=== PATIENT | male | born 1980 | race Hispanic/Latino ===

== ENCOUNTER 2017-12-07 09:41 | Emergency (ER) | payer BC, OTHER ==
[2017-12-07] MEDS ORDERED: NA CHLORIDE 0.9% 1,000 ML ONE (10:26)
[2017-12-07] MEDS ORDERED: ASPIRIN 81 MG CHEWABLE TABLET ONE (10:26)
--- NOTE | 2017-12-07 10:45 | EKG ---
Test Date: 2017-12-07 Test Time: 09:51:37 [employer]ire Changer: RUBIO MEASUREMENT RESULTS: Intervals: Rate: 46 ID: [id number] QRSD: 102 QT: 420 QTc: 367 Joffre: P: 27 ID: [id number] QRS: 100 T: 68 INTERPRETIVE STATEMENTS: Sinus bradycardia Rightward axis Borderline ECG No previous ECG available for comparison Electronically Signed On 12-07-17 10:44:25 CDT by Pako Felipe
[2017-12-07 10:46] LABS: Absolute Lymphocytes (CBC) 1.8 K/uL (0.7-4.9); Absolute Monocytes 0.5 K/uL (0.1-1.3); Absolute Neutrophil 3.1 K/uL (1.8-8.0); Basophils % 0.6 % (0-1.3); Eosinophils % 0.7 % (0-4.4); Hematocrit 45.8 % (39.6-49.0); Lymphocytes % 32.2 % (15.3-44.8); MCH 31.1 pg (27.0-35.0); MCV 91.4 fL (80-100); MPV 8.8 fL (7.6-11.3); Monocytes % 9.4 % (3.3-12.3); RBC Red Blood Cell Count 5.01 M/uL (4.33-5.43)
[2017-12-07 10:47] LABS: Protime INR 1.07
--- NOTE | 2017-12-07 10:49 | RAD REPORT ---
EXAM DESCRIPTION: RAD - Chest Single View - 12/07/2017 10:30 am CLINICAL HISTORY: Chest pain, shortness of breath COMPARISON: None. TECHNIQUE: AP portable chest image was obtained 1024 hours . FINDINGS: Lungs are clear. Heart and vasculature are normal. No measurable pleural effusion and no p neumothorax. No gross bony abnormality seen. No acute aortic findings suspected. IMPRESSION: No acute cardiopulmonary process.
[2017-12-07 10:51] LABS: ALT/SGPT 53 U/L (12-78); AST/SGOT 42 U/L (15-37); Albumin 4.1 g/dL (3.4-5.0); Alkaline Phosphatase 102 U/L (45-117); BUN Blood Urea Nitrogen 9 mg/dL (7-18); Bicarbonate 27 mmol/L (21-32); Bilirubin Direct < 0.1 mg/dL (0-0.2); Bilirubin Total 0.5 mg/dL (0.2-1.0); Glucose Level 94 mg/dL (74-106); Lipase 116 U/L (73-393); Magnesium 1.9 mg/dL (1.8-2.4); NT PRO-BNP 22 pg/mL (<125); Protein, Total 7.8 g/dL (6.4-8.2); Sodium Level 140 mmol/L (136-145); Troponin (Emerg Dept Use Only) < 0.02 ng/mL (0.0-0.045)
--- NOTE | 2017-12-07 11:30 | RAD REPORT ---
EXAM DESCRIPTION: CT - Chest For Pe Angio - 12/07/2017 11:04 am CLINICAL HISTORY: Chest pain radiating to the right chest, chest fullness COMPARISON: Chest films same date TECHNIQUE: Dynamically enhanced 3 mm thick images of the chest were obtained during administration o f approximately 150mL Isovue 370 IV contrast. Coronal and oblique MIP reconstruction images were gene rated and reviewed. Exam utilizes a protocol to evaluate the pulmonary arterial tree. All CT scans are performed using dose optimization technique as appropriate and may include automated exposure control or mA/KV adjustment according to patient size. FINDINGS: No pulmonary emboli are identified. The aorta as imaged shows no acute or suspicious finding. No pericardial thickening or effusion. No infiltrate or mass in the lung parenchyma. No pleural effusion or pleural thickening. No mediastinal or hilar suspicious masses. No chest wall masses or abnormal axillary lymphadenopathy. IMPRESSION: No pulmonary emboli identified. No other significant or suspicious findings.
--- NOTE | 2017-12-07 12:15 | ECHO ---
HEIGHT: 5 ft 8 in WEIGHT: 160 lb oz DATE OF STUDY: 12/07/[address]: Damian Hunter MD 2-DIMENSIONAL: YES M.MODE: YES DOPPLER: YES COLOR FLOW: YES TDS: NO PORTABLE: YES DEFINITY: NO BUBBLE STUDY: NO DIAGNOSIS: CHEST PAIN CARDIAC HISTORY: CATHERIZATION: NO SURGERY: NO PROSTHETIC VALVE: NO PACEMAKER: NO MEASUREMENTS (cm) DIASTOLIC (NORMALS) SYSTOLIC (NORMALS) IVSd 0.9 (0.6-1.2) LA Diam 3.0 (1.9-4.0) LVEF 61% LVIDd 4.2 (3.5-5.7) LVIDs 2.8 (2.0-3.5) %FS 32% LVPWd 1.1 (0.6-1.2) Ao Diam 2.8 (2.0-3.7) 2 DIMENSIONAL ASSESSMENT: RIGHT ATRIUM: NORMAL LEFT ATRIUM: NORMAL RIGHT VENTRICLE: NORMAL LEFT VENTRICLE: NORMAL TRICUSPID VALVE: NORMAL MITRAL VALVE: NORMAL PULMONIC VALVE: NORMAL AORTIC VALVE: NORMAL PERICARDIAL EFFUSION: NONE AORTIC ROOT: NORMAL LEFT VENTRICULAR WALL MOTION: NORMAL. DOPPLER/COLOR FLOW: MILD TRICUSPID REGURGITATION. NORMAL RIGHT VENTRICULAR SYSTOLIC PRESSURE. COMMENTS: NORMAL 2D ECHO. MILD TRICUSPID REGURGITATION. TECHNOLOGIST: ANNA KENT
--- NOTE | 2017-12-07 12:49 | ER ---
Nurse's Notes [facility] Name: Mynor Reza Age: 37 yrs Sex: Male : 1980 Arrival Date: 12/07/2017 Time: 09:46 Bed 7 Private MD: Paul Serrano S Diagnosis: Other chest pain;Essential (primary) hypertension;Pleurisy Presentation: 12/07 09:48 Presenting complaint: Patient states: i have this chest pain for about a week, hj underneath my R chest; feels heavy and hurts, /10; i have lifted weights last week; denies SOB; reports radiating pain on R arm and R upper back area;. Transition of care: patient was not received from another setting of care. Onset of symptoms was December 07, 2017. Risk Assessment: Do you want to hurt yourself or someone else? Patient reports no desire to harm self or others. Initial Sepsis Screen: Does the patient meet any 2 criteria? No. Patient's initial sepsis screen is negative. Does the patient have a suspected source of infection? No. Patient's initial sepsis screen is negative. Care prior to arrival: None. 09:48 Method Of Arrival: Ambulatory 09:48 Acuity: TUSHAR 3 hj Triage Assessment: 09:51 General: Appears in no apparent distress. uncomfortable, Behavior is calm, cooperative, hj appropriate for age. Pain: Complains of pain in chest Pain does not radiate. Pain currently is 9 out of 10 on a pain scale. Cardiovascular: Capillary refill < 3 seconds Patient's skin is warm and dry. Historical: - Allergies: 09:51 No Known Allergies; hj - Home Meds: 09:51 amlodipine-benazepril 2.5-10 mg oral cap 1 cap once daily [Active]; hj - PMHx: 09:51 Hypertension; hj 09:56 SVT; - PSHx: 09:51 heart ablation; hj - Immunization history:: Adult Immunizations up to date. - Social history:: Smoking status: Patient/guardian denies using tobacco, Patient uses alcohol, occasionally. - Ebola Screening: : Patient negative for fever greater than or equal to 101.5 degrees Fahrenheit, and additional compatible Ebola Virus Disease symptoms Patient denies exposure to infectious person Patient denies travel to an Ebola-affected area in the 21 days before illness onset. - Family history:: not pertinent. Screenin:51 Abuse screen: Denies threats or abuse. Denies injuries from another. Nutritional hj screening: No deficits noted. Tuberculosis screening: No symptoms or risk factors identified. Fall Risk None identified. Assessment: 09:52 Pain: Pain began a week. hj 10:25 General: Appears in no apparent distress. comfortable, Behavior is calm, cooperative, aj appropriate for age. Pain: Complains of pain in anterior aspect of right upper chest and right breast. Neuro: Level of Consciousness is awake, alert, obeys commands, Oriented to person, place, time, situation, Appropriate for age. Respiratory: Airway is patent Respiratory effort is even, unlabored, Respiratory pattern is regular, symmetrical. Derm: Skin is intact, is healthy with good turgor, Skin is pink, warm \T\ dry. normal. 12:55 Reassessment: Patient appears in no apparent distress at this time. No changes from aj previously documented assessment. Patient and/or family updated on plan of care and expected duration. Pain level reassessed. Patient is alert, oriented x 3, equal unlabored respirations, skin warm/dry/pink. Patient denies pain at this time. Patient states feeling better. Patient states symptoms have improved. Vital Signs: 09:52 BP 137 / 67; Pulse 57; Resp 18; Temp 97.3(O); Pulse Ox 100% on R/A; Weight 72.57 kg; hj Height 5 ft. 8 in. (172.72 cm); Pain 9/10; 11:15 BP 133 / 75; Pulse 47; Resp 19; Pulse Ox 99% on R/A; aj 12:47 BP 125 / 76; Pulse 46; Resp 17; Pulse Ox 99% on R/A; aj 09:52 Body Mass Index 24.33 (72.57 kg, 172.72 cm) ED Course: 09:46 Patient arrived in ED. mr 09:47 Paul Serrano MD is Private Physician. mr 09:50 Triage completed. hj 09:52 Arm band placed on left wrist. hj 09:52 Patient has correct armband on for positive identification. Placed in gown. Bed in low hj position. Call light in reach. Side rails up X 1. monitoring coordinator on. Pulse ox on. NIBP on. 09:52 Patient maintains SpO2 saturation greater than 95% on room air. hj 09:55 Skye Mendosa, RN is Primary Nurse. aj 09:55 EKG done, by photo technologist. reviewed by Damian Hunter MD. at1 10:00 Damian Hunter MD is Attending Physician. luis 10:14 Radiology exam delayed due to lab results not completed at this time. (BUN/Creatinine). jg6 10:15 Inserted saline lock: 20 gauge in right antecubital area, using aseptic technique. aj Blood collected. 10:30 XRAY Chest (1 view) In Process Unspecified. EDMS 10:30 X-ray completed. Portable x-ray completed in exam room. Patient tolerated procedure ls3 well. 10:42 Radiology exam delayed due to lab results not completed at this time. (BUN/Creatinine). vr 10:58 CT completed. Patient tolerated procedure well. Patient moved to CT via wheelchair. jg6 11:04 CT Chest For PE Angio In Process Unspecified. EDMS 12:48 Paul Serrano MD is Referral Physician. luis 12:48 Chavez Hutton MD is Referral Physician. luis 12:55 No provider procedures requiring assistance completed. IV discontinued, intact, aj bleeding controlled, No redness/swelling at site. Pressure dressing applied. Administered Medications: 10:25 Drug: NS 0.9% 1000 ml Route: IV; Rate: 125 ml/hr; Site: right antecubital; aj 12:59 Follow up: Response: No adverse reaction; IV Status: Completed infusion; IV Intake: aj 1000ml 10:25 Drug: Aspirin Chewable Tablet 324 mg Route: PO; aj 12:58 Follow up: Response: No adverse reaction aj Intake: 12:59 IV: 1000ml; Total: 1000ml. aj Outcome: 12:48 Discharge ordered by . luis 12:55 Discharged to home ambulatory. aj 12:55 Condition: good 12:55 Discharge instructions given to patient, Instructed on discharge instructions, follow up and referral plans. medication usage, Demonstrated understanding of instructions, follow-up care, medications, Prescriptions given X 1. 12:59 Patient left the ED. aj Signatures: Dispatcher [employer] EDMS Skye Mendosa, Damian Perez RN, MD MD cha Rivera, Estela mr Lisa, Dasha vr Skye Villanueva, compensation and benefits advisor EKG Tat1 Marcial Bravo RN RN hj Garcia, Jessica jg6 Shahana Medina ls3 Corrections: (The following items were deleted from the chart) 10:13 09:48 Presenting complaint: Patient states: i have this chest pain for about a week, hj underneath my R chest; feels heavy and hurts, 11/14; i have lifted weights last week; denies SOB; hj
--- NOTE | 2017-12-07 12:49 | EDPHYS ---
Physician Documentation [facility] Name: Mynor Reza Age: 37 yrs Sex: Male : 1980 Arrival Date: 12/07/2017 Time: 09:46 Bed 7 Private MD: Paul Serrano S ED Physician Damian Hunter HPI: 12/07 10:08 This 37 yrs old Male presents to ER via Ambulatory with complaints of Chest luis Pain. 10:08 The patient or guardian reports chest pain that is located primarily in the substernal luis area. The pain does not radiate. Associated signs and symptoms: Pertinent positives: cough, dizziness, lightheadedness, recent travel. The chest pain is described as a pressure, sharp. Duration: The patient or guardian reports multiple episodes, with no pattern. Modifying factors: The symptoms are alleviated by remaining still, the symptoms are aggravated by deep breath, exertion, movement, palpation of area. Severity of pain: At its worst the pain was mild moderate in the emergency department the pain is unchanged. The patient has not experienced similar symptoms in the past. Historical: - Allergies: 09:51 No Known Allergies; hj - Home Meds: 09:51 amlodipine-benazepril 2.5-10 mg oral cap 1 cap once daily [Active]; hj - PMHx: 09:51 Hypertension; 09:56 SVT; - PSHx: 09:51 heart ablation; hj - Immunization history:: Adult Immunizations up to date. - Social history:: Smoking status: Patient/guardian denies using tobacco, Patient uses alcohol, occasionally. - Ebola Screening: : Patient negative for fever greater than or equal to 101.5 degrees Fahrenheit, and additional compatible Ebola Virus Disease symptoms Patient denies exposure to infectious person Patient denies travel to an Ebola-affected area in the 21 days before illness onset. - Family history:: not pertinent. ROS: 10:08 Constitutional: Negative for fever, chills, and weight loss, Eyes: Negative for injury, luis pain, redness, and discharge, ENT: Negative for injury, pain, and discharge, Neck: Negative for injury, pain, and swelling, Abdomen/GI: Negative for abdominal pain, nausea, vomiting, diarrhea, and constipation, Back: Negative for injury and pain, : Negative for injury, bleeding, discharge, and swelling, MS/Extremity: Negative for injury and deformity, Skin: Negative for injury, rash, and discoloration, Neuro: Negative for headache, weakness, numbness, tingling, and seizure, Psych: Negative for depression, anxiety, suicide ideation, homicidal ideation, and hallucinations, Allergy/Immunology: Negative for hives, rash, and allergies, Endocrine: Negative for neck swelling, polydipsia, polyuria, polyphagia, and marked weight changes, Hematologic/Lymphatic: Negative for swollen nodes, abnormal bleeding, and unusual bruising. 10:08 Cardiovascular: Positive for chest pain. 10:08 Respiratory: Positive for pleurisy, shortness of breath, at rest. Exam: 10:08 Constitutional: This is a well developed, well nourished patient who is awake, alert, luis and in no acute distress. Head/Face: Normocephalic, atraumatic. Eyes: Pupils equal round and reactive to light, extra-ocular motions intact. Lids and lashes normal. Conjunctiva and sclera are non-icteric and not injected. Cornea within normal limits. Periorbital areas with no swelling, redness, or edema. ENT: Nares patent. No nasal discharge, no septal abnormalities noted. Tympanic membranes are normal and external auditory canals are clear. Oropharynx with no redness, swelling, or masses, exudates, or evidence of obstruction, uvula midline. Mucous membranes moist. Neck: Trachea midline, no thyromegaly or masses palpated, and no cervical lymphadenopathy. Supple, full range of motion without nuchal rigidity, or vertebral point tenderness. No Meningismus. Chest/axilla: Normal chest wall appearance and motion. Nontender with no deformity. No lesions are appreciated. Cardiovascular: Regular rate and rhythm with a normal S1 and S2. No gallops, murmurs, or rubs. Normal PMI, no JVD. No pulse deficits. Abdomen/GI: Soft, non-tender, with normal bowel sounds. No distension or tympany. No guarding or rebound. No evidence of tenderness throughout. Back: No spinal tenderness. No costovertebral tenderness. Full range of motion. Male : Normal genitalia with no discharge or lesions. Skin: Warm, dry with normal turgor. Normal color with no rashes, no lesions, and no evidence of cellulitis. MS/ Extremity: Pulses equal, no cyanosis. Neurovascular intact. Full, normal range of motion. Neuro: Awake and alert, GCS 15, oriented to person, place, time, and situation. Cranial nerves II-XII grossly intact. Motor strength 5/5 in all extremities. Sensory grossly intact. Cerebellar exam normal. Normal gait. Psych: Awake, alert, with orientation to person, place and time. Behavior, mood, and affect are within normal limits. 10:08 Chest/axilla: Inspection: normal, Palpation: tenderness, that is mild, of the right lateral anterior chest and right breast, Axilla: are normal, Lymph nodes: lymphadenopathy is not appreciated. 10:08 Respiratory: the patient does not display signs of respiratory distress, Respirations: normal, Breath sounds: are clear throughout. 10:08 Musculoskeletal/extremity: DVT Exam: No signs of deep vein thrombosis. no pain, no swelling, no tenderness, negative Homans' sign noted on exam, no appreciated bluish discoloration, no erythema, no increased warmth. Vital Signs: 09:52 BP 137 / 67; Pulse 57; Resp 18; Temp 97.3(O); Pulse Ox 100% on R/A; Weight 72.57 kg; hj Height 5 ft. 8 in. (172.72 cm); Pain 9/10; 11:15 BP 133 / 75; Pulse 47; Resp 19; Pulse Ox 99% on R/A; aj 12:47 BP 125 / 76; Pulse 46; Resp 17; Pulse Ox 99% on R/A; aj 09:52 Body Mass Index 24.33 (72.57 kg, 172.72 cm) MDM: 10:00 Patient medically screened. [facility] 10:11 Data reviewed: vital signs, nurses notes, lab test result(s), EKG, radiologic studies, [facility] CT scan, plain films. 12/07 10: Order name: Basic Metabolic Panel [facility] 12/07 10: Order name: CBC with Diff [facility] 12/07 10: Order name: LFT's [facility] 12/07 10: Order name: Magnesium [facility] 12/07 10: Order name: NT PRO-BNP [facility] 12/07 10:01 Order name: PT-INR; Complete Time: 11:11 [facility] 12/07 10: Order name: Troponin (emerg Dept Use Only); Complete Time: 11:11 [facility] 10/03 10:01 Order name: Lipase; Complete Time: 11:11 [facility] 12/07 10:01 Order name: Basic Metabolic Panel; Complete Time: 11:11 [facility] 12/07 10:01 Order name: CBC with Automated Diff; Complete Time: 11:11 [facility] 12/07 10:01 Order name: Liver (Hepatic) Function; Complete Time: 11:11 [facility] 12/07 10:01 Order name: Magnesium; Complete Time: 11:11 [facility] 12/07 10:01 Order name: NT PRO-BNP; Complete Time: 11:11 [facility] 12/07 11:24 Order name: Troponin (emerg Dept Use Only): please repeat at noon; Complete Time: 12:48 [facility] 12/07 10:01 Order name: XRAY Chest (1 view); Complete Time: 11:11 [facility] 12/07 10:01 Order name: EKG; Complete Time: 10:02 [facility] 12/07 10:01 Order name: Cardiac monitoring; Complete Time: 10: [facility] 12/07 10:01 Order name: EKG - Nurse/Tech; Complete Time: 10: [facility] 12/07 10:01 Order name: O2 Per Protocol; Complete Time: 10: [facility] 12/07 10:01 Order name: O2 Sat Monitoring; Complete Time: 10: [facility] 12/07 10:08 Order name: Echo w/ Doppler [facility] 12/07 10:08 Order name: CT Chest For PE Angio; Complete Time: 12:15 [facility] 12/07 12:39 Order name: Urine Dipstick--Ancillary (enter results) 12/07 12:39 Order name: Urine Dipstick-Ancillary [facility] Administered Medications: 10:25 Drug: NS 0.9% 1000 ml Route: IV; Rate: 125 ml/hr; Site: right antecubital; aj 12:59 Follow up: Response: No adverse reaction; IV Status: Completed infusion; IV Intake: aj 1000ml 10:25 Drug: Aspirin Chewable Tablet 324 mg Route: PO; aj 12:58 Follow up: Response: No adverse reaction aj Disposition: 12/07/17 12:48 Discharged to Home. Impression: Other chest pain, Essential (primary) hypertension, Pleurisy. - Condition is Stable. - Discharge Instructions: Nonspecific Chest Pain, Chest Wall Pain, Hypertension, Pleurisy, Chest Wall Pain, [id number]-[id number], Nonspecific Chest Pain, Wojw-xo-Teiw, Hypertension, Tkzb-gh-[id number], How to Take Your Blood Pressure, Bcod-ds-Fnsa, Aspirin and Your Heart, Pleurisy, Axxd-nc-Fvig, Managing Your Hypertension. - Prescriptions for Protonix 40 mg Oral Tablet, Delayed Release (E.C.) - take 1 tablet by ORAL route once daily; 20 tablet. - Medication Reconciliation Form, Thank You Letter, Antibiotic Education, Prescription Opioid Use form. - Follow up: Paul Serrano; When: 2 - 3 days; Reason: Recheck today's complaints, Continuance of care, Re-evaluation by your physician. Follow up: Chavez Hutton; When: 2 - 3 days; Reason: Recheck today's complaints, Re-evaluation by your physician. - Problem is new. - Symptoms have improved. Signatures: Dispatcher [employer] EDSkye Leary RN RN aj Anderson, Corey, MD MD cha Joaquin, Henry, RN RN hj Corrections: (The following items were deleted from the chart) 12:59 12:48 12/07/2017 12:48 Discharged to Home. Impression: Other chest pain; Essential aj (primary) hypertension; Pleurisy. Condition is Stable. Discharge Instructions: Nonspecific Chest Pain, Chest Wall Pain, Hypertension, Pleurisy, Chest Wall Pain, Qwjq-[id number]-[id number], Nonspecific Chest Pain, Flec-qh-Xsne, Hypertension, Kibk-af-Khox, How to Take Your Blood Pressure, Upws-vj-Gdqf, Aspirin and Your Heart, Pleurisy, Easy-dn-Uxqf, Managing Your Hypertension. Prescriptions for Protonix 40 mg Oral Tablet, Delayed Release (E.C.) - take 1 tablet by ORAL route once daily; 20 tablet. and Forms are Medication Reconciliation Form, Thank You Letter, Antibiotic Education, Prescription Opioid Use. Follow up: Paul Serrano; When: 2 - 3 days; Reason: Recheck today's complaints, Continuance of care, Re-evaluation by your physician. Follow up: Chavez Hutton; When: 2 - 3 days; Reason: Recheck today's complaints, Re-evaluation by your physician. Problem is new. Symptoms have improved. luis
[2017-12-07 14:03] LABS: Urine Blood NEGATIVE (NEG); Urine Glucose NEGATIVE (NEG); Urine Protein NEGATIVE (NEG); Urine pH 8.5 (5.0-7.0)
== END 2017-12-07 12:59 | disposition home or self-care (01) ==
LOC: ER 09:41
DX: I10 Essential (primary) hypertension (principal); R09.1 Pleurisy
CPT/HCPCS: 36415; 71045; 71275; 80048; 80076; 81003; 83690; 83735; 83880; 84484; 85025; 85610; 93005; 93306; J7030; Q9967

== ENCOUNTER 2018-01-26 10:30 | Emergency (ER) | payer OTHER ==
--- NOTE | 2018-01-26 12:10 | EDPHYS ---
Physician Documentation [facility] Name: Mynor Reza Age: 37 yrs Sex: Male : 1980 Arrival Date: 01/26/2018 Time: 10:34 Bed 18 Private MD: Paul Serrano S ED Physician Latonia Overton HPI: 01/26 12:07 This 37 yrs old Male presents to ER via Ambulatory with complaints of Flu ma2 Symptoms. 12:07 The patient or guardian reports cough, flu symptoms. Severity of symptoms: At their ma2 worst the symptoms were moderate, in the emergency department the symptoms are unchanged. Associated signs and symptoms: Pertinent negatives: chest pain. The patient has not experienced similar symptoms in the past. Historical: - Allergies: 10:47 No Known Allergies; aj1 - Home Meds: 10:47 amlodipine-benazepril 2.5-10 mg Oral cap 1 cap once daily [Active]; aj1 - PMHx: 10:47 Hypertension; SVT; aj1 - PSHx: 10:47 wrist surgery; aj1 10:47 Cholecystectomy; aj1 - Immunization history:: Flu vaccine is up to date. - Social history:: Smoking status: Patient/guardian denies using tobacco, Patient/guardian denies using alcohol, street drugs, The patient lives with family. - Ebola Screening: : Patient denies travel to an Ebola-affected area in the 21 days before illness onset. - Family history:: not pertinent. - Hospitalizations: : No recent hospitalization is reported. ROS: 12:07 Constitutional: Negative for fever, chills, and weight loss, Cardiovascular: Negative ma2 for chest pain, palpitations, and edema, Respiratory: Negative for shortness of breath, cough, wheezing, and pleuritic chest pain, Abdomen/GI: Negative for abdominal pain, nausea, diarrhea, and constipation, MS/Extremity: Negative for injury and deformity. 12:07 ENT: Positive for sore throat, Negative for drainage from ear(s), Gum pain hearing loss. 12:07 All other systems are negative. Exam: 12:07 Constitutional: This is a well developed, well nourished patient who is awake, alert, ma2 and in no acute distress. Head/Face: Normocephalic, atraumatic. Chest/axilla: Normal chest wall appearance and motion. Nontender with no deformity. No lesions are appreciated. Cardiovascular: Regular rate and rhythm with a normal S1 and S2. No gallops, murmurs, or rubs. Normal PMI, no JVD. No pulse deficits. Respiratory: Lungs have equal breath sounds bilaterally, clear to auscultation and percussion. No rales, rhonchi or wheezes noted. No increased work of breathing, no retractions or nasal flaring. 12:07 MS/ Extremity: Pulses equal, no cyanosis. Neurovascular intact. Full, normal range of motion. Neuro: Awake and alert, GCS 15, oriented to person, place, time, and situation. Cranial nerves II-XII grossly intact. Motor strength 5/5 in all extremities. Sensory grossly intact. Cerebellar exam normal. Normal gait. 12:07 ENT: Posterior pharynx: Airway: normal, Tonsils: bilaterally enlarged. Vital Signs: 10:47 BP 151 / 87; Pulse 92; Resp 20; Temp 99.2(TE); Pulse Ox 98% on R/A; Weight 72.57 kg aj1 (R); Height 5 ft. 8 in. (172.72 cm) (R); Pain 7/10; 12:17 BP 148 / 83; Pulse 103; Resp 18; Temp 101.8(O); Pulse Ox 99% on R/A; em 10:47 Body Mass Index 24.33 (72.57 kg, 172.72 cm) aj1 MDM: 10:49 Patient medically screened. ma2 12:07 Differential Diagnosis: Bronchitis Influenza Upper Respiratory Infection Sinusitis. ma2 Data reviewed: vital signs, nurses notes. Counseling: I had a detailed discussion with the patient and/or guardian regarding: the historical points, exam findings, and any diagnostic results supporting the discharge/admit diagnosis, the presence of at least one elevated blood pressure reading (>120/80) during this emergency department visit. ED course: takes antibiotics at home.. decline pain medicine in er or steroid . 01/26 10:52 Order name: Flu; Complete Time: 12:05 ma2 Administered Medications: No medications were administered Disposition: 01/26/18 12:09 Discharged to Home. Impression: Acute bronchitis due to streptococcus. - Condition is Stable. - Discharge Instructions: Strep Throat. - Prescriptions for Tylenol- Codeine #3 300-30 mg Oral Tablet - take 2 tablet by ORAL route every 6 hours As needed; 30 tablet. - Medication Reconciliation Form, Thank You Letter, Antibiotic Education, Prescription Opioid Use form. - Follow up: Private Physician; When: Tomorrow; Reason: Continuance of care. Signatures: Dispatcher [employer] Samra Cadena RN RN aj1 Pepe Sidhu, EMAIL DEPLOYMENT SPECIALIST EMAIL DEPLOYMENT SPECIALIST em Latonia Overton MD MD ma2 Corrections: (The following items were deleted from the chart) 12:30 12:09 01/26/2018 12:09 Discharged to Home. Impression: Acute bronchitis due to em streptococcus. Condition is Stable. Forms are Medication Reconciliation Form, Thank You Letter, Antibiotic Education, Prescription Opioid Use. Follow up: Private Physician; When: Tomorrow; Reason: Continuance of care. ma2
--- NOTE | 2018-01-26 12:10 | ER ---
Nurse's Notes [facility] Name: Mynor Reza Age: 37 yrs Sex: Male : 1980 Arrival Date: 01/26/2018 Time: 10:34 Bed 18 Private MD: Paul Serrano S Diagnosis: Acute bronchitis due to streptococcus Presentation: 01/26 10:45 Presenting complaint: Patient states: He had strep throat and took Amoxicillin, the aj1 next day his came home sick and was diagnosed with strep and flu. Last night he started having body aches, fever. Transition of care: patient was not received from another setting of care. Onset of symptoms was January 25, 2018. Risk Assessment: Do you want to hurt yourself or someone else? Patient reports no desire to harm self or others. Initial Sepsis Screen: Does the patient meet any 2 criteria? No. Patient's initial sepsis screen is negative. Does the patient have a suspected source of infection? No. Patient's initial sepsis screen is negative. Care prior to arrival: None. 10:45 Method Of Arrival: Ambulatory aj1 10:45 Acuity: TUSHAR 4 aj1 Triage Assessment: 10:47 General: Appears in no apparent distress. comfortable, Behavior is calm, cooperative, aj1 appropriate for age. Pain: Complains of pain in chest Pain currently is 7 out of 10 on a pain scale. at worst was 10 out of 10 on a pain scale. Aggravated by cough. Neuro: Level of Consciousness is awake, alert, obeys commands. Cardiovascular: Patient's skin is warm and dry. Respiratory: Airway is patent Respiratory effort is even, unlabored, Respiratory pattern is regular, symmetrical. Historical: - Allergies: 10:47 No Known Allergies; aj1 - Home Meds: 10:47 amlodipine-benazepril 2.5-10 mg Oral cap 1 cap once daily [Active]; aj1 - PMHx: 10:47 Hypertension; SVT; aj1 - PSHx: 10:47 wrist surgery; aj1 10:47 Cholecystectomy; aj1 - Immunization history:: Flu vaccine is up to date. - Social history:: Smoking status: Patient/guardian denies using tobacco, Patient/guardian denies using alcohol, street drugs, The patient lives with family. - Ebola Screening: : Patient denies travel to an Ebola-affected area in the 21 days before illness onset. - Family history:: not pertinent. - Hospitalizations: : No recent hospitalization is reported. Screenin:25 Abuse screen: Denies threats or abuse. Nutritional screening: No deficits noted. em Tuberculosis screening: No symptoms or risk factors identified. Fall Risk None identified. Assessment: 11:10 General: Appears in no apparent distress. distressed, Behavior is calm, cooperative, em Reports low grade fever. Pain: Complains of pain in chest Pain currently is 7 out of 10 on a pain scale. Neuro: Level of Consciousness is awake, alert, obeys commands, Oriented to person, place, time, situation. Cardiovascular: Capillary refill < 3 seconds Patient's skin is warm and dry. Respiratory: Reports cough that is productive, pain with cough Airway is patent Respiratory effort is even, unlabored, Respiratory pattern is regular, symmetrical, Breath sounds are clear bilaterally. GI: Abdomen is flat, Patient currently denies nausea, vomiting. : No signs and/or symptoms were reported regarding the genitourinary system. EENT: Nares are clear Oral mucosa is moist. Denies nasal discharge. Derm: Skin is intact, Skin is pink, warm \T\ dry. Musculoskeletal: Capillary refill < 3 seconds, Range of motion: intact in all extremities. 11:10 Reassessment: I agree with assessment completed by PINKY Montemayor aa5 12:17 Reassessment: Patient appears in no apparent distress at this time. Patient and/or em family updated on plan of care and expected duration. Pain level reassessed. Patient is alert, oriented x 3, equal unlabored respirations, skin warm/dry/pink. reports feeling feverish, rechecked temp. 101.8, provider notified. Vital Signs: 10:47 BP 151 / 87; Pulse 92; Resp 20; Temp 99.2(TE); Pulse Ox 98% on R/A; Weight 72.57 kg [facility] (R); Height 5 ft. 8 in. (172.72 cm) (R); Pain 7/10; 12:17 BP 148 / 83; Pulse 103; Resp 18; Temp 101.8(O); Pulse Ox 99% on R/A; em 10:47 Body Mass Index 24.33 (72.57 kg, 172.72 cm) [facility] ED Course: 10:34 Patient arrived in ED. mr 10:35 Paul Serrano MD is Private Physician. mr 10:46 Triage completed. aj1 10:47 Arm band placed on Patient placed in an exam room. aj1 10:49 Latonia Overton MD is Attending Physician. ma2 10:59 Pepe Sidhu LVN is Primary Nurse. em 11:25 Patient has correct armband on for positive identification. Bed in low position. Call em light in reach. 11:25 No provider procedures requiring assistance completed. Flu and/or RSV swab sent to lab. em 12:28 Patient did not have IV access during this emergency room visit. em Administered Medications: No medications were administered Outcome: 12:09 Discharge ordered by . ma2 12:28 Discharged to home ambulatory. em 12:28 Condition: good 12:28 Discharge instructions given to patient, Instructed on discharge instructions, follow up and referral plans. no drinking with medication, no driving heavy equipment, medication usage, Demonstrated understanding of instructions, follow-up care, medications, Prescriptions given X 1. 12:30 Patient left the ED. em Signatures: Samra Melo, RN RN [email or web address] Estela Ferrer mr Pepe Sidhu LVN LVN em Stephany Barnes, RN RN aa5 Latonia Overton MD MD [facility]
[2018-01-26] MEDS ORDERED: ACETAMINOPHEN 500 MG TAB ONE (12:30)
== END 2018-01-26 12:30 | disposition home or self-care (01) ==
LOC: ER 10:30
DX: J20.2 Acute bronchitis due to streptococcus (principal); I10 Essential (primary) hypertension
CPT/HCPCS: 87804; 99283